=== PATIENT | male | born 1995 | race African-American/Black ===

== ENCOUNTER 2018-07-22 12:39 | Emergency (ER) | payer MEDICAID ==
[~2018-07-22] VITALS: Ht 175.3 cm; Wt 58.0 kg
[2018-07-22 13:20] VITALS: BP 127/61
== END 2018-07-22 14:15 | disposition left against medical advice (07) ==
LOC: ER 12:39
DX: R07.89 Other chest pain (principal); F17.210 Nicotine dependence, cigarettes, uncomplicated; F12.10 Cannabis abuse, uncomplicated
CPT/HCPCS: 93005; 99283